=== PATIENT | male | born 1990 | race Hispanic/Latino ===

== ENCOUNTER → 2024-10-04 07:57 | Outpatient (CLI) | payer OTHER, SELFPAY ==
--- NOTE | 2024-10-04 08:02 | DI.MRI.S_ITS ---
PROCEDURE: MR ANKLE RT WO CON INDICATIONS: RT FOOT AND ANKLE INJURY TECHNIQUE: Noncontrast sagittal T1 spin echo and T2 fast spin echo with fat saturation, axial proton density fast spin echo and T2 fast spin echo with fat saturation, coronal T1 spin echo and T2 fast spin echo with fat saturation through the ankle/hindfoot. COMPARISON: None. FINDINGS: Image quality: Excellent. Bones and joints: No bone marrow contusions or fractures. No hindfoot coalitions. No osteochondral injuries of the talar dome. No pathologic joint effusions. Medial structures: The posterior tibialis tendon is thickened at the level of distal talus and talonavicular joint. Small amount of fluid distending tendon sheath at this level is also seen. The flexor digitorum longus, and flexor hallucis longus tendons are intact. The posterior tibial neurovascular bundle appears normal within the tarsal tunnel, without extrinsic mass effect. Thickened deep fibers of deltoid ligament is seen. The spring ligament is also thickened.. Lateral structures: The anterior talofibular ligament is thickened with intrasubstance T2 hyperintense signal. The calcaneofibular, and posterior talofibular ligaments are mildly thickened. More superiorly, the anterior and posterior tibiofibular ligaments appear intact, as is the intermalleolar ligament. The tibiofibular syndesmosis is normal in width at 2 mm or less. Thickened peroneus longus and brevis tendon at the level of mid to distal calcaneus and cuboid is seen. Subtle intrasubstance T2 hyperintense signal within peroneus longus tendon at the level of distal calcaneus and calcaneocuboid joint is seen. The sinus tarsi demonstrates normal fatty signal, without edema, fibrosis, or cyst formation. Anterior structures: The tibialis anterior, extensor hallucis longus, and extensor digitorum longus tendons appear intact. The dorsal talonavicular ligament appears intact. Posterior and plantar structures: Achilles tendon is intact. Medial and lateral bands of the plantar fascia are of normal thickness. No abductor digiti quinti muscle atrophy to suggest Ca neuropathy. IMPRESSION: 1. No marrow edema. No fracture or dislocation. No osteochondral injuries of talar dome. 2. Tendinosis and low-grade tenosynovitis involving posterior tibialis tendon at the level of distal talus and talonavicular joint. 3. Tendinosis involving peroneus tendons at the level of mid to distal calcaneus and cuboid. Low-grade intrasubstance partial-thickness tear also seen involving peroneus longus tendon at the level of distal calcaneus and calcaneocuboid joint. 4. Low-grade sprain involving deep fibers of deltoid ligament and spring ligament. 5. Low to moderate grade intrasubstance partial-thickness tear involving anterior talofibular ligament. Low-grade sprain involving calcaneal fibular ligament and posterior talofibular ligament. No full-thickness ankle ligament rupture. Dictated by: Chaz Casey M.D. on 10/04/2024 at 15:17 Approved by: Chaz Casey M.D. on 10/04/2024 at 15:24
--- NOTE | 2024-10-04 08:02 | DI.MRI.S_ITS ---
PROCEDURE: MR FOOT RT WO CON INDICATIONS: RT ANKLE AND FOOT INJURY TECHNIQUE: Multiphasic, multisequence MRI of the forefoot was performed, without intravenous contrast administration. COMPARISON: None. FINDINGS: Image quality: Excellent. Bones and joints: There is marrow edema involving 1st distal phalanx without discrete fracture line. Marrow edema is also noted involving medial sesamoid of 1st metatarsal head with bipartite medial sesamoid. No metatarsal stress fractures. No suspicious intraosseous lesion. Nonspecific subcortical cystic changes are noted involving lateral aspect of 5th metatarsal head. Soft tissues: The visualized plantar foot muscles demonstrate normal signal and bulk. Thickened flexor hallucis longus tendon at the level of distal 1st metatarsal shaft and 1st MTP joint is seen. Rest of the visualized flexor and extensor tendons appear intact, without tenosynovitis. The distal insertions of the peroneus brevis and longus tendons appear intact. The principal Lisfranc ligament appears intact. No soft tissue ganglion cysts or bursal fluid collections. Sagittal images demonstrate no evidence for plantar plate tears. IMPRESSION: 1. Marrow edema involving medial sesamoid of 1st metatarsal head concerning for sesamoiditis. Edema also noted involving 1st distal phalanx without discrete fracture line and may represent bony contusion. No other area of abnormal marrow signal. No metatarsal stress fractures. No suspicious bony lesions. Small subcortical cystic changes involving lateral aspect of 5th metatarsal head. 2. Tendinosis involving flexor hallucis longus tendon at the level of distal 1st metatarsal shaft and 1st MTP joint. Rest of the extensor and flexor tendons are intact. 3. Lisfranc ligament is intact. No gross plantar foot muscle signal abnormalities. Dictated by: Chaz Casey M.D. on 10/04/2024 at 15:07 Approved by: Chaz Casey M.D. on 10/04/2024 at 15:17
== END ==
LOC: MRI 08:00
PROVIDERS: Referring Provider Podiatrist; Visit Provider Podiatrist
DX: S96.111A Strain of muscle and tendon of long extensor muscle of toe at ankle and foot level, right foot, initial encounter (principal); S86.311A Strain of muscle(s) and tendon(s) of peroneal muscle group at lower leg level, right leg, initial encounter; S93.491A Sprain of other ligament of right ankle, initial encounter; S93.411A Sprain of calcaneofibular ligament of right ankle, initial encounter; M65.871 Other synovitis and tenosynovitis, right ankle and foot; R60.0 Localized edema; M79.671 Pain in right foot; X58.XXXA Exposure to other specified factors, initial encounter
CPT/HCPCS: 73718; 73721